=== PATIENT | male | born 1990 | race Caucasian/White ===

== ENCOUNTER 2024-10-24 20:54 | Emergency (ER) | payer SELFPAY ==
[2024-10-24 21:04] VITALS: BP 141/96; PULSE 78; RESP 20; TEMP 36.4; O2SAT 98; BMI 36.9
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
--- OUTSIDE RECORDS SUMMARY | 2024-10-24 21:05 | XMS_ITS | Encounter Summary ---
Author Organization [facility] Address [address] [place] [address] Care Team Providers Care Candy Maker Name Role Phone Dewey Gallardo Primary Care Provider Gladys pickens Encounter Details Date Type Department Care Team (Latest Contact Info) Description 06/02/2002 Outpatient Historical [facility] Medicine [place] [address] [facility] [address] [facility] [address] [place] [phone] Dylon Horowitz MD [address] [facility] [address] [place] [phone] ACUTE PHARYNGITIS (Primary Dx); ALLERGIC RHINITIS NOS; Dysfunct eustachian tube Social History Tobacco Use Types Packs/Day Years Used Date Smoking Tobacco: Never Assessed Sex and Gender Information Value Date Recorded Sex Assigned at Not on file Legal 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
--- OUTSIDE RECORDS SUMMARY | 2024-10-24 21:05 | XMS_ITS | Encounter Summary ---
Author Organization [facility] Address [address] [place] [address] Care Team Providers Care Hot Dog Vendor Name Role Phone Dewey Gallardo Primary Care Provider Gladys pickens Encounter Details Date Type Department Care Team (Latest Contact Info) Description 03/21/2001 Outpatient Historical [facility] Medicine [place] [address] [facility] [address] [place] [phone] Dylon Horowitz MD [address] [facility] [address] [facility] [address] [place] [phone] FX PHALANX, HAND NOS-CLOSE (Primary Dx); CONTUSION OF FINGER Social History Tobacco Use Types Packs/Day Years Used Date Smoking Tobacco: Never Assessed Sex and Gender Information Value Date Recorded Sex Assigned at Not on file Legal 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
--- OUTSIDE RECORDS SUMMARY | 2024-10-24 21:05 | XMS_ITS | Encounter Summary ---
Author Organization [facility] Address [address] [place] [address] Care Team Providers Care Ux Ui Designer Name Role Phone Dewey Gallardo Primary Care Provider Gladys pickens Encounter Details Date Type Department Care Team (Latest Contact Info) Description 01/03/1998 Outpatient Historical [facility] Medicine [place] [address] [facility] [address] [place] [phone] Michel Barbour, DO [address] [place] [address] Acute pharyngitis (Primary Dx) Social History Tobacco Use Types Packs/Day Years Used Date Smoking Tobacco: Never Assessed Sex and Gender Information Value Date Recorded Sex Assigned at Not on file Legal 

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
--- OUTSIDE RECORDS SUMMARY | 2024-10-24 21:05 | XMS_ITS | Encounter Summary ---
Author Organization [facility] Address [address] [place] [address] Care Team Providers Care Asic Verification Engineer Name Role Phone Dewey Gallardo Primary Care Provider Gladys pickens Encounter Details Date Type Department Care Team (Late st Contact Info) Description 02/02/2007 Outpatient Historical [facility] Medicine [place] [address] [facility] [address] [place] [phone] Ellis Mitchell MD NO ADDRESS ON FILE Social History Tobacco Use Types Packs/Day Years Used Date Smoking Tobacco: Never Assessed Sex and Gender Information Value Date Recorded Sex Assigned at Not on file Legal Sex Male 2:50 AM SPARE HAND CARDING Gender Identity Not on file Sexual Orientation Not on file documented as of this encounter Plan of Treatment Not on file documented as of this encounter Visit Diagnoses Not on filedocumented in this encounter Care Teams Asic Verification Engineer Relationship Specialty Start Date End Date Dewey Gallardo PA PCP - General Physician Owner Manager 10/08/14 documented as of this encounter
--- OUTSIDE RECORDS SUMMARY | 2024-10-24 21:05 | XMS_ITS | Encounter Summary ---
Author Organization [facility] Address [address] [place] [address] Care Team Providers Care Pulp Maker Name Role Phone Dewey Gallardo Primary Care Provider Gladys pickens Encounter Details Date Type Department Care Team (Late st Contact Info) Description 03/03/2007 Outpatient Historical [facility] Medicine [place] [address] [facility] [address] [place] [address] Hira Hernández NP NO ADDRESS ON FILE Social History Tobacco Use Types Packs/Day Years Used Date Smoking Tobacco: Never Assessed Sex and Gender Information Value Date Recorded Sex Assigned at Not on file Legal 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
--- OUTSIDE RECORDS SUMMARY | 2024-10-24 21:05 | XMS_ITS | Encounter Summary ---
Author Organization [facility] Address [address] [place] [address] Care Team Providers Care Glazier Supervisor Name Role Phone Dewey Gallardo Primary Care Provider Gladys pickens Encounter Details Date Type Department Care Team (Latest Contact Info) Description 03/20/2002 Outpatient Historical [facility] Family Medicine- [place] [address] [place] [address] Nimisha Perez MD NO ADDRESS ON FILE ACUTE URI NOS (Primary Dx); ACUTE PHARYNGITIS Social History Tobacco Use Types Packs/Day Years Used Date Smoking Tobacco: Never Assessed Sex and Gender Information Value Date Recorded Sex Assigned at Not on file 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
--- OUTSIDE RECORDS SUMMARY | 2024-10-24 21:05 | XMS_ITS | Encounter Summary ---
Author Organization [facility] Address [address] [place] [address] Care Team Providers Care Classification Officer Name Role Phone Dewey Gallardo Primary Care Provider Gladys pickens Encounter Details Date Type Department Care Team (Latest Contact Info) Description 09/28/2006 Outpatient Historical [facility] Family Medicine- [place] [address] [place] [address] Dewey Gallardo PA NO ADDRESS ON FILE Other General Medical Examination for Administrative Purposes (Primary Dx) Social History Tobacco Use Types Packs/Day Years Used Date Smoking Tobacco: Never Assessed Sex and Gender Information Value Date Recorded Sex Assigned at Not on file Legal Sex Male 2:50 AM NARCOTICS AGENT Gender Identity Not on file Sexual Orientation Not on file documented as of this encounter Plan of Treatment Not on file documented as of this encounter Visit Diagnoses Diagnosis Other general medical examination for administrative purposes- Primary documented in this encounter Care Teams Classification Officer Relationship Specialty Start Date End Date Dewey Gallardo PA PCP - General Physician Ballpoint Pen Assembly Machine Operator 10/08/14 documented as of this encounter
--- OUTSIDE RECORDS SUMMARY | 2024-10-24 21:05 | XMS_ITS | Encounter Summary ---
Author Organization [facility] Address [address] [place] [address] Care Team Providers Care Geophysical Prospecting Permit Agent Name Role Phone Dewey Gallardo Primary Care Provider Gladys pickens Encounter Details Date Type Department Care Team (Latest Contact Info) Description 04/05/2001 Outpatient Historical [facility] Medicine [place] [address] [facility] [address] [place] [phone] Tomasz Ruff DO NO ADDRESS ON FILE ACUTE BRONCHITIS (Primary Dx) Social History Tobacco Use Types Packs/Day Years Used Date Smoking Tobacco: Never Assessed Sex and Gender Information Value Date Recorded Sex Assigned at Not on file 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
--- OUTSIDE RECORDS SUMMARY | 2024-10-24 21:05 | XMS_ITS | Encounter Summary ---
Author Organization [facility] Address [address] [place] [address] Care Team Providers Care Transmission Specialist Name Role Phone Dewey Gallardo Primary Care Provider Gladys pickens Encounter Details Date Type Department Care Team (Latest Contact Info) Description 12/03/2004 Outpatient Historical [facility] Medicine [place] [address] [facility] [address] [place] [address] Dewey Gallardo PA NO ADDRESS ON FILE MED EXAM NEC-ADMIN PURP (Primary Dx) Social History Tobacco Use Types Packs/Day Years Used Date Smoking Tobacco: Never Assessed Sex and Gender Information Value Date Recorded Sex Assigned at Not on file Legal 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
--- OUTSIDE RECORDS SUMMARY | 2024-10-24 21:05 | XMS_ITS | Encounter Summary ---
Author Organization [facility] Address [address] [place] [address] Care Team Providers Care Syrup Mixer Assistant Name Role Phone Dewey Gallardo Primary Care Provider Gladys pickens Encounter Details Date Type Department Care Team (Latest Contact Info) Description 09/26/2002 Outpatient Historical [facility] Family Medicine- [place] [address] [place] [address] Tomasz Ruff DO NO ADDRESS ON FILE HEADACHE (Primary Dx); JOINT PAIN-ANKLE; OBESITY NOS Social History Tobacco Use Types Packs/Day Years Used Date Smoking Tobacco: Never Assessed Sex and Gender Information Value Date Recorded Sex Assigned at Not on file Legal Sex Male 2:50 AM CLAM SHUCKER Gender Identity Not on file Sexual Orientation Not on file documented as of this encounter Plan of Treatment Not on file documented as of this encounter Visit Diagnoses Diagnosis Headache(784.0)- Primary Headache Pain in joint, ankle and foot Obesity, unspecified documented in this encounter Care Teams Syrup Mixer Assistant Relationship Specialty Start Date End Date Dewey Gallardo PA PCP - General Physician Psychic Reader 10/08/14 documented as of this encounter
--- NOTE | 2024-10-24 21:49 | CTR_ITS ---
PROCEDURE INFORMATION: Exam: CT Abdomen And Pelvis With Contrast Exam date and time: 10/24/2024 11:23 PM Age: 34 years old Clinical indication: Abdominal tenderness; Additional info: Concern for strangulated hernia TECHNIQUE: Imaging protocol: Computed tomography of the abdomen and pelvis with contrast. Radiation optimization: All CT scans at this facility use at least one of these dose optimization techniques: automated exposure control; mA and/or kV adjustment per patient size (includes targeted exams where dose is matched to clinical indication); or iterative reconstruction. Contrast material: OMNI 350; Contrast volume: 100 ml; Contrast route: INTRAVENOUS (IV); COMPARISON: US abdomen limited [id number] 06/27/2024 9:45 AM RADIATION DOSE METRICS: Total DLP (mGy-cm): 1204.87 FINDINGS: Liver: Normal. No mass. Gallbladder and biliary ducts: Normal. No calcified stones. No ductal dilation. Pancreas: Normal. No ductal dilation. Spleen: Normal. No splenomegaly. Adrenal glands: Normal. No mass. Kidneys and ureters: Normal. No hydronephrosis. Stomach and bowel: Scattered colonic diverticula without definite significant acute inflammatory changes. Appendix: No evidence of appendicitis. Intraperitoneal space: Unremarkable. No free air. No significant fluid collection. Vasculature: Unremarkable. No abdominal aortic aneurysm. Lymph nodes: Unremarkable. No enlarged lymph nodes. Urinary bladder: Unremarkable as visualized. Reproductive: Unremarkable as visualized. Bones/joints: Unremarkable. No acute fracture. Soft tissues: Small fat containing periumbilical hernia with inflamed mesenteric fat, with ventral abdominal wall defect measuring up to 1.2 cm. No associated bowel obstruction. CT/CT abdomen pelvis w con* [id number] IMPRESSION: Small fat containing periumbilical hernia with inflamed mesenteric fat, with ventral abdominal wall defect measuring up to 1.2 cm. No associated bowel obstruction.
--- NOTE | 2024-10-24 22:13 | ED_ITS ---
HPI - Abdominal Pain 2 General: Chief Complaint: Abdominal Pain Stated Complaint: Two Hernia's Time Seen by Provider: 10/24/24 21:58 History of Present Illness: Patient is 34-year-old male with known umbilical hernia x 2, that was working today with his abdominal support brace on, took this off, and had severe pain. He is unable to sit down. He has burping, and sure he has had gas passing. Denies any dysuria. This happened suddenly after work at 1630. He thought there is pulsating. Admits to nausea without emesis. Associated Symptoms: Reports nausea; Denies chills, fever(s) and vomiting Related Data Previous Rx's ?Medication ?Instructions ?Recorded methocarbamol 500 mg tablet 500 mg PO Q8H PRN muscle s pasm #30 10/25/24 tabs Allergies Allergy/AdvReac Type Severity Reaction Status Date / Time No Known Allergies Allergy Verified 10/24/24 21:09 Review of Systems 2 General: Reports: 10 or more systems reviewed and unremarkable except in HPI and below Const: Denies: fever(s) or chills Eyes: Denies: change in vision or blurry vision ENMT: Denies: throat pain or mouth pain Card: Denies: chest pain or palpitations Resp: Denies: dyspnea or non-productive cough GI: Reports: abdominal pain and nausea; Denies: vomiting : Denies: flank pain or difficulty urinating Musc: Denies: neck pain, back pain or extremity pain Skin/Breast: Denies: rash or pruritus Neuro: Denies: headache(s) or numbness in extremities Psych: Denies: anxiety or depression Vasyl/Lymph: Denies: easy bruising or easy bleeding All/Imm: Denies: urticaria Physical Exam 2 Const: COMMON NORMALS: patient oriented x3 HENMT: COMMON NORMALS: normocephalic and atraumatic HEAD & SCALP: n ormocephalic and atraumatic Neck/C-Spine: COMMON NORMALS: full ROM, no lymphadenopathy and supple Chest: COMMONS NORMALS: normal inspection of the chest and normal palpation of entire chest wall Resp: COMMON NORMALS: normal respiratory effort, No retractions, No use of accessory muscles and clear to auscultation bilaterally AUSCULTATION: clear to auscultation bilaterally Cardio: COMMON NORMALS: regular rate and regular rhythm RATE: regular rate RHYTHM: regular rhythm GI: INSPECTION: Yes visible herniation, No visible pulsation and No visible peristalsis AUSCULTATION: Yes Hypoactive bowel sounds present PALPATION: Y es Firmness to palpation present (GI), Yes Tenderness to palpation present (GI) Details: RUQ and Yes Guarding due to palpation present (GI) in the RUQ : COMMON NORMALS: Yes no CVA tenderness BLADDER/KIDNEY EXAM: Yes no CVA tenderness Back/Pelvis: COMMON NORMALS: no CVA tenderness Extremity: COMMON NORMALS: normal to inspection, full ROM and capillary refill normal Neuro: COMMON NORMALS: patient oriented x3, CN's II-XII intact bilaterally and moves all extremities Psych: COMMON NORMALS: mental status grossly normal and Normal thought process present THOUGHT PROCESS: Normal thought process present Skin: COMMON NORMALS: no rashes or lesions noted, no wounds and turgor normal GENERAL SKIN EXAM: no rashes or lesions noted and turgor normal Course 2 Vital Signs: Vital signs: Vital Signs Temperature 97.6 F 10/24/24 21:04 Pulse Rate 53 L 10/25/24 00:30 Respiratory Rate 20 H 10/24/24 21:04 Blood Pressure 116/71 10/25/24 00:30 Pulse Oximetry 99 10/25/24 00:30 Oxygen Delivery Me thod Room Air 10/25/24 00:00 MDM - Abdominal Pain Medical Decision Making Patient is 34-year-old male with complaints of abdominal pain, severe, worsening since work at 1630 when he removed his brace. He feels like there is a pulsating area. I do not appreciate this on exam, however I do appreciate a fullness tenderness, and guarding in this right to mid upper quadrant. Discussed with patient. Will obtain routine labs, and CT of his abdomen pelvis with contrast. As well he will be giving medication for his pain.. Patient's CT had periumbilical hernia that is inflamed. More information obtained from the patient notes that he utilized a small Abdominal brace because he could not find his regular sized abdominal brace. I suspect this is secondary to the size of the brace. I have asked patient not to wear this 1. Will treat with additional analgesic, anti-inflammatory, muscle relaxers, and discharged home with education on icing, Tylenol, ibuprofen. Medical Records I reviewed the patient's medical records. Lab Data I reviewed the patient's lab results. 10/24/24 22:10 10/24/24 22:10 Labs/Radiology: Radiology Impressions Abdomen/Pelvis CT 10/24/24 21:49 IMPRESSION: Small fat containing periumbilical hernia with inflamed mesenteric fat, with ventral abdominal wall defect measuring up to 1.2 cm. No associated bowel obstruction. Laboratory Results WBC 10.19 10^3/uL (3.29-11.43) 10/24/24 22:10 RBC 5.05 10^6/uL (3.85-5.65) 10/24/24 22:10 Hgb 14.90 g/dL (11.27-16.99) 10/24/24 22:10 Hct 43.3 % (37-53) 10/24/24 22:10 MCV 85.7 fl (82-101) 10/24/24 22:10 MCH 29.5 pg (27-33) 10/24/24 22:10 MCHC 34.4 g/dL (30-55) 10/24/24 22:10 RDW 12.4 % (12.1-15.1) 10/24/24 22:10 Plt Count 231 10^3/cmm (157-399) 10/24/24 22:10 MPV 10.7 fL (7.4-10.4) H 10/24/24 22:10 Neut % (Auto) 65.4 % 10/24/24 22:10 Lymph % (Auto) 25.9 % 10/24/24 22:10 [place] % (Auto) 6.9 % 10/24/24 22:10 Eos % (Auto) 1.0 % 10/24/24 22:10 Baso % (Auto) 0.5 % 10/24/24 22:10 Neut # (Auto) 6.67 10^3/uL (1.8-7.7) 10/24/24 22:10 Lymph # (Auto) 2.6 10^3/uL (0.8-4.8) 10/24/24 22:10 [place] # (Auto) 0.7 10^3/uL (0.2-0.9) 10/24/24 22:10 Eos # (Auto) 0.1 10^3/uL (0.0-0.8) 10/24/24 22:10 Baso # (Auto) 0.1 10^3/uL (0.0-0.1) 10/24/24 22:10 Nucleated RBC % (auto) 0 % 10/24/24 22:10 Nucleated RBCs # 0.0 /100WBC 10/24/24 22:10 Sodium 137 mmol/L (136-145) 10/24/24 22:10 Potassium 3.8 mmol/L (3.5-5.1) 10/24/24 22:10 Chloride 99 mmol/L (98-107) 10/24/24 22:10 Carbon Dioxide 28 mmol/L (22-29) 10/24/24 22:10 Anion Gap 13.8 (5-19) 10/24/24 22:10 BUN 12 mg/dL (6-20) 10/24/24 22:10 Creatinine 0.9 mg/dL (0.7-1.2) 10/24/24 22:10 GFR Calculation 97.8 mL/min (90-130) 10/24/24 22:10 Glucose 95 mg/dL (65-115) 10/24/24 22:10 Calculated Osmolality 284 mOsm/kg (285-295) L 10/24/24 22:10 Lactic Acid 1.3 mmol/L (0.5-2.2) 10/24/24 22:10 Calcium 9.5 mg/dL (8.5-10.5) 10/24/24 22:10 Total Bilirubin 0.6 mg/dL (0.15-1.2) 10/24/24 22:10 AST 28 U/L (0-40) 10/24/24 22:10 ALT 46 U/L (0-41) H 10/24/24 22:10 Alkaline Phosphatase 82 U/L (40-130) 10/24/24 22:10 Total Protein 7.8 g/dL (6.6-8.7) 10/24/24 22:10 Albumin 4.8 g/dL (3.5-5.2) 10/24/24 22:10 Globulin 3.0 g/dL (1.3-4.6) 10/24/24 22:10 Lipase 12 U/L (13-60) L 10/24/24 22:10 All radiology interpretation(s) finalized by discharge Discharge Plan Discharge Patient Disposition: Home Clinical Impression: Periumbilical hernia Condition: Stable Prescriptions: New methocarbamol 500 mg tablet 500 mg PO Q8H PRN (Reason: muscle spasm) Qty: 30 0RF Discharge Orders: Discharge ED (Routine); Ordered 10/25/24 Ordered By: Vianca Hammer Referrals: Abimael Harp MD [Primary Care Provider, Family Practice] Patient Instructions: Ventral Hernia (ED), Patient Portal & [place] Instructions Activity Restrictions/Additional Instructions: Do not wear your and narrow brace again since it caused the inflammation of your abdominal hernia Muscle relaxer was sent to the pharmacy. Use with caution as you can have some sedate of effects. Do not start until tomorrow, as you did have a muscle relaxer tonight You can ice your periumbilical hernia to help with comfort. You may utilize Tylenol and ibuprofen tomorrow. You may take the day off as per we discussed with your work family Consider reevaluating repairing your hernia with your physician Return to ED with worsening pain, not passing gas, bloating, fever greater 100.4 ?F Print Language: French Coding Level of Care Code ED Production Underwriter for Boby Phan
[2024-10-24 22:26] LABS: Hematocrit 43.3 % (37-53); Hemoglobin 14.90 g/dL (11.27-16.99); Mean Corpuscular HGB Conc 34.4 g/dL (30-55); Mean Corpuscular Hemoglobin 29.5 pg (27-33); Mean Corpuscular Volume 85.7 fl (82-101); Nucleated Red Blood Cells % 0 %; Platelet Count 231 10^3/cmm (157-399); Red Blood Count 5.05 10^6/uL (3.85-5.65); White Blood Count 10.19 10^3/uL (3.29-11.43)
[2024-10-24 22:46] LABS: Lactic Sepsis W/Reflex 1.3 mmol/L (0.5-2.2)
[2024-10-24 22:49] LABS: Alanine Aminotransferase 46 U/L (0-41); Albumin Level 4.8 g/dL (3.5-5.2); Alkaline Phosphatase 82 U/L (40-130); Anion Gap 13.8 (5-19); Aspartate Amino Transferase 28 U/L (0-40); Blood Urea Nitrogen 12 mg/dL (6-20); Calcium 9.5 mg/dL (8.5-10.5); Carbon Dioxide 28 mmol/L (22-29); Chloride 99 mmol/L (98-107); Creatinine Clr Calc Pharmacy 155.4347; Globulin 3.0 g/dL (1.3-4.6); Glucose 95 mg/dL (65-115); Lipase 12 U/L (13-60); Osmolality Calculated 284 mOsm/kg (285-295); Potassium 3.8 mmol/L (3.5-5.1); Sodium 137 mmol/L (136-145); Total Protein 7.8 g/dL (6.6-8.7)
[2024-10-24] MEDS: ondansetron 2 mg/ML SDV 2 mL 4 MG IVP (23:01)
[2024-10-24] MEDS: morphine 4 mg/mL SDV 1 mL IVP (23:01)
[2024-10-24] MEDS: iohexol 350 mg/mL 500 mL Btl (per mL) IV (23:27)
[2024-10-25] VITALS: BP 110/67; PULSE 99; O2SAT 100
[2024-10-25 00:30] VITALS: BP 116/71; PULSE 53; O2SAT 99
[2024-10-25] MEDS: orphenadrine 30 mg/mL Inj 2 mL 60 MG IM (01:03)
[2024-10-25] MEDS: HYDROmorphone 0.5 MG/0.5 ML INJ IVP (01:03)
[2024-10-25 01:37] VITALS: BP 116/78; PULSE 51; O2SAT 99
== END 2024-10-25 01:39 | disposition home or self-care (01) ==
PROVIDERS: Emergency Provider Physician Assistant; PCP Family Medicine
DX: K42.9 Umbilical hernia without obstruction or gangrene (principal)
CPT/HCPCS: 36415; 74177; 80053; 83605; 83690; 85025; 96361; 96372; 96374; 96375; 99285; J1171; J1885; J2270; J2360; J2405; J7030

== ENCOUNTER 2024-12-02 15:16 | Emergency (ER) | payer OTHER, SELFPAY ==
[2024-12-02 15:24] VITALS: BP 136/77; PULSE 65; RESP 18; O2SAT 98
--- OUTSIDE RECORDS SUMMARY | 2024-12-02 15:24 | XMS_ITS | Encounter Summary ---
Author Organization [facility] Address [address] [place] [address] Care Team Providers Care Rn Correctional Name Role Phone Dewey Gallardo Primary Care Provider Gladys pickens Encounter Details Date Type Department Care Team (Late st Contact Info) Description 02/02/[address] 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
--- OUTSIDE RECORDS SUMMARY | 2024-12-02 15:24 | XMS_ITS | Encounter Summary ---
Author Organization [facility] Address [address] [place] [address] Care Team Providers Care Acid Loader Name Role Phone Dewey Gallardo Primary Care Provider Gladys pickens Encounter Details Date Type Department Care Team (Late st Contact Info) Description 03/03/2007 Outpatient Historical [facility] Medicine [place] [address] [facility] [address] [place] [phone] Hira Hernández NP NO ADDRESS ON FILE Social History Tobacco Use Types Packs/Day Years Used Date Smoking Tobacco: Never Assessed Sex and Gender Information Value Date Recorded Sex Assigned at Not on file 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
--- OUTSIDE RECORDS SUMMARY | 2024-12-02 15:24 | XMS_ITS | Encounter Summary ---
Author Organization [facility] Address [address] [place] [address] Care Team Providers Care Exhibitor Sales Name Role Phone Dewey Gallardo Primary Care Provider Gladys pickens Encounter Details Date Type Department Care Team (Latest Contact Info) Description 12/03/2004 Outpatient Historical [facility] Medicine [place] [address] 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
--- OUTSIDE RECORDS SUMMARY | 2024-12-02 15:24 | XMS_ITS | Encounter Summary ---
Author Organization [facility] Address [address] [place] [address] Care Team Providers Care Junior Data Analyst Name Role Phone Dewey Gallardo Primary Care Provider Gladys pickens Encounter Details Date Type Department Care Team (Latest Contact Info) Description 06/02/2002 Outpatient Historical [facility] Medicine [place] [address] [facility] [address] [place] [phone] Dylon Horowitz MD [address] [facility] [address] [place] [phone] ACUTE PHARYNGITIS (Primary Dx); ALLERGIC RHINITIS NOS; Dysfunct eustachian tube Social History Tobacco Use Types Packs/Day Years Used Date Smoking Tobacco: Never Assessed Sex and Gender Information Value Date Recorded Sex Assigned at Not on file 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
--- OUTSIDE RECORDS SUMMARY | 2024-12-02 15:24 | XMS_ITS | Encounter Summary ---
Author Organization [facility] Address [address] [place] [address] Care Team Providers Care Library Cataloging Technician Name Role Phone Dewey Gallardo Primary Care Provider Gladys pickens Encounter Details Date Type Department Care Team (Latest Contact Info) Description 09/26/2002 Outpatient Historical [facility]- [place] [address] [place] [address] Tomasz Ruff DO NO ADDRESS ON FILE HEADACHE (Primary Dx); JOINT PAIN-ANKLE; OBESITY NOS Social History Tobacco Use Types Packs/Day Years Used Date Smoking Tobacco: Never Assessed Sex and Gender Information Value Date Recorded Sex Assigned at Not on file 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
--- OUTSIDE RECORDS SUMMARY | 2024-12-02 15:24 | XMS_ITS | Encounter Summary ---
Author Organization [facility] Address [address] [place] [address] Care Team Providers Care Novelty Twister Operator Name Role Phone Dewey Gallardo Primary Care Provider Gladys pickens Encounter Details Date Type Department Care Team (Latest Contact Info) Description 03/21/2001 Outpatient Historical [facility] Medicine [place] [address] [facility] [address] [place] [phone] Dylon Horowitz MD [address] [facility] [address] [place] [phone] FX PHALANX, HAND NOS-CLOSE (Primary Dx); CONTUSION OF FINGER Social History Tobacco Use Types Packs/Day Years Used Date Smoking Tobacco: Never Assessed Sex and Gender Information Value Date Recorded Sex Assigned at Not on file Legal 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
--- OUTSIDE RECORDS SUMMARY | 2024-12-02 15:24 | XMS_ITS | Clinical Summary ---
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
--- OUTSIDE RECORDS SUMMARY | 2024-12-02 15:24 | XMS_ITS | Encounter Summary ---
Author Organization [facility] Address [address] [place] [address] Care Team Providers Care Staff Counsel Name Role Phone Dewey Gallardo Primary Care Provider Gladys pickens Encounter Details Date Type Department Care Team (Latest Contact Info) Description 01/03/1998 Outpatient Historical [facility] Medicine [place] [address] [facility] [address] [place] [phone] Michel Barbour, DO [address] [place] [address] Acute pharyngitis (Primary Dx) Social History Tobacco Use Types Packs/Day Years Used Date Smoking Tobacco: Never Assessed Sex and Gender Information Value Date Recorded Sex Assigned at Not on file 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
--- OUTSIDE RECORDS SUMMARY | 2024-12-02 15:24 | XMS_ITS | Encounter Summary ---
Author Organization [facility] Address [address] [place] [address] Care Team Providers Care Duplicating Machine Operator Name Role Phone Dewey Gallardo Primary Care Provider Gladys pickens Encounter Details Date Type Department Care Team (Latest Contact Info) Description 09/28/2006 Outpatient Historical [facility]- [place] [address] [place] [address] Dewey Gallardo PA NO ADDRESS ON FILE Other General Medical Examination for Administrative Purposes (Primary Dx) Social History Tobacco Use Types Packs/Day Years Used Date Smoking Tobacco: Never Assessed Sex and Gender Information Value Date Recorded Sex Assigned at Not on file Legal 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
--- OUTSIDE RECORDS SUMMARY | 2024-12-02 15:24 | XMS_ITS | Clinical Summary ---
Author Organization [facility] Address 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
--- OUTSIDE RECORDS SUMMARY | 2024-12-02 15:24 | XMS_ITS | Encounter Summary ---
Author Organization [facility] Address [address] [place] [address] Care Team Providers Care Cleaning And Maintenance Worker Name Role Phone Dewey Gallardo Primary Care Provider Gladys pickens Encounter Details Date Type Department Care Team (Latest Contact Info) Description 03/20/2002 Outpatient Historical [facility]- [place] [address] [place] [address] Nimisha Perez MD NO ADDRESS ON FILE ACUTE URI NOS (Primary Dx); ACUTE PHARYNGITIS Social History Tobacco Use Types Packs/Day Years Used Date Smoking Tobacco: Never Assessed Sex and Gender Information Value Date Recorded Sex Assigned at Not on file Legal Sex Male 2:50 AM SET OFF BLOCKER Gender Identity Not on file Sexual Orientation Not on file documented as of this encounter Plan of Treatment Not on file documented as of this encounter Visit Diagnoses Diagnosis Acute upper respiratory infections of unspecified site- Primary Acute pharyngitis documented in this encounter Care Teams Cleaning And Maintenance Worker Relationship Specialty Start Date End Date Dewey Gallardo PA PCP - General Physician Manager Of Purchasing 10/08/14 documented as of this encounter
--- OUTSIDE RECORDS SUMMARY | 2024-12-02 15:24 | XMS_ITS | Encounter Summary ---
Author Organization [facility] Address [address] [place] [address] Care Team Providers Care Manufacturing Leader Name Role Phone Dewey Gallardo Primary Care Provider Gladys pickens Encounter Details Date Type Department Care Team (Latest Contact Info) Description 04/05/2001 Outpatient Historical [facility] Medicine [place] [address] [facility] [address] [place] [address] Tomasz Ruff DO NO ADDRESS ON FILE ACUTE BRONCHITIS (Primary Dx) Social History Tobacco Use Types Packs/Day Years Used Date Smoking Tobacco: Never Assessed Sex and Gender Information Value Date Recorded Sex Assigned at Not on file 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
[2024-12-02 16:02] LABS: Hematocrit 43.2 % (37-53); Hemoglobin 14.90 g/dL (11.27-16.99); Mean Corpuscular HGB Conc 34.5 g/dL (30-55); Mean Corpuscular Hemoglobin 29.3 pg (27-33); Mean Corpuscular Volume 84.9 fl (82-101); Nucleated Red Blood Cells % 0 %; Platelet Count 224 10^3/cmm (157-399); Red Blood Count 5.09 10^6/uL (3.85-5.65); White Blood Count 10.20 10^3/uL (3.29-11.43)
[2024-12-02 16:20] LABS: Alanine Aminotransferase 43 U/L (0-41); Albumin Level 4.7 g/dL (3.5-5.2); Alkaline Phosphatase 81 U/L (40-130); Anion Gap 15.5 (5-19); Aspartate Amino Transferase 27 U/L (0-40); Blood Urea Nitrogen 14 mg/dL (6-20); Calcium 9.5 mg/dL (8.5-10.5); Carbon Dioxide 27 mmol/L (22-29); Chloride 100 mmol/L (98-107); Creatinine Clr Calc Pharmacy 156.9467; Globulin 2.9 g/dL (1.3-4.6); Glucose 99 mg/dL (65-115); Lipase 12 U/L (13-60); Osmolality Calculated 287 mOsm/kg (285-295); Potassium 4.5 mmol/L (3.5-5.1); Sodium 138 mmol/L (136-145); Total Protein 7.6 g/dL (6.6-8.7)
--- NOTE | 2024-12-02 16:35 | CTR_ITS ---
PROCEDURE INFORMATION: Exam: CT Abdomen And Pelvis With Contrast Exam date and time: 12/02/2024 4:52 PM Age: 34 years old Clinical indication: Abdominal pain; Additional info: Abdominal pain with concern of hernia strangulation TECHNIQUE: Imaging protocol: Computed tomography of the abdomen and pelvis with contrast. Radiation optimization: All CT scans at this facility use at least one of these dose optimization techniques: automated exposure control; mA and/or kV adjustment per patient size (includes targeted exams where dose is matched to clinical indication); or iterative reconstruction. Contrast material: OMNI 350; Contrast volume: 100 ml; Contrast route: INTRAVENOUS (IV); COMPARISON: CT abdomen pelvis w con* [id number] 10/24/2024 11:23 PM RADIATION DOSE METRICS: Total DLP (mGy-cm): 1202.78 FINDINGS: Liver: No discrete liver lesions are apparent. Smooth hepatic contour. Gallbladder and biliary ducts: No gallbladder distension or inflammation. No calcified gallstones are apparent. No common bile duct abnormality is evident. Pancreas: No evidence of pancreatitis. No ductal dilation. Spleen: Spleen is enlarged, measuring 15.6 cm on coronal imaging. Adrenal glands: Adrenal glands are within expected limits. Kidneys and ureters: No renal or ureteral calculi are identified. No hydronephrosis. Stomach and bowel: Small bowel is normal caliber. No obstruction. Transverse colon is nondistended, slightly accentuating wall thickness. Appendix: No evidence of appendicitis. Intraperitoneal space: No free air. No significant fluid collection. Vasculature: No abdominal aortic aneurysm. Lymph nodes: No pathologically enlarged lymph nodes by CT size criteria. Urinary bladder: Unremarkable as visualized. Reproductive: Unremarkable as visualized. Bones/joints: No acute osseous abnormalities. Soft tissues: There are a pair of tiny supraumbilical ventral abdominal wall hernias which contain inflamed fat, but no bowel. There is also a small fat containing umbilical hernia that does not appear inflamed. CT/CT abdomen pelvis w con* [id number] IMPRESSION: 1. Pair of tiny supraumbilical hernias containing inflamed fat, but no bowel. 2. Mild splenomegaly, nonspecific.
--- NOTE | 2024-12-02 16:39 | ED_ITS ---
HPI - Abdominal Pain 2 General: Chief Complaint: Abdominal Pain Stated Complaint: abd pain Time Seen by Provider: 12/02/24 16:04 History of Present Illness: Patient is 34-year-old male with known ventral hernia, presents to ED with sudden severe pain right lower quadrant. Patient is concerned he has hernia strangulation. This occurred 2 hours prior to arrival. He does have mild improvement because he took his methocarbamol from his last ER visit on 10/25. He still has mild pain in this right lower quadrant area. No fevers. He was not lifting anything heavy. Associated Symptoms: Reports nausea; Denies chills, fever(s) and vomiting Related Data Previous Rx's ?Medication ?Instructions ?Recorded methocarbamol 500 mg tablet 500 mg PO Q8H PRN muscle s pasm #30 10/25/24 tabs methocarbamol 750 mg tablet 750 mg PO Q8H PRN muscle s pasm #30 12/02/24 tabs Allergies Allergy/AdvReac Type Severity Reaction Status Date / Time No Known Allergies Allergy Verified 10/24/24 21:09 Review of Systems 2 General: Reports: 10 or more systems reviewed and unremarkable except in HPI and below Const: Denies: fever(s) or chills Eyes: Denies: change in vision or blurry vision ENMT: Denies: throat pain or mouth pain Card: Denies: chest pain or palpitations Resp: Denies: dyspnea or non-productive cough GI: Reports: abdominal pain and nausea; Denies: vomiting : Denies: flank pain or difficulty urinating Musc: Denies: neck pain, back pain or extremity pain Skin/Breast: Denies: rash or pruritus Neuro: Denies: headache(s) or numbness in extremities Psych: Denies: anxiety or depression Vasyl/Lymph: Denies: easy bruising or easy bleeding All/Imm: Denies: urticaria Physical Exam 2 Const: COMMON NORMALS: patient oriented x3 HENMT: COMMON NORMALS: normocephalic and atraumatic HEAD & SCALP: n ormocephalic and atraumatic Neck/C-Spine: COMMON NORMALS: full ROM, no lymphadenopathy and supple Chest: COMMONS NORMALS: normal inspection of the chest and normal palpation of entire chest wall Resp: COMMON NORMALS: normal respiratory effort, No retractions, No use of accessory muscles and clear to auscultation bilaterally AUSCULTATION: clear to auscultation bilaterally Cardio: COMMON NORMALS: regular rate and regular rhythm RATE: regular rate RHYTHM: regular rhythm GI: INSPECTION: Yes visible herniation, No visible pulsation and No visible peristalsis AUSCULTATION: Yes Hypoactive bowel sounds present PALPATION: Y es Firmness to palpation present (GI), Yes Tenderness to palpation present (GI) Details: RLQ and Yes Guarding due to palpation present (GI) in the RLQ : COMMON NORMALS: Yes no CVA tenderness BLADDER/KIDNEY EXAM: Yes no CVA tenderness Back/Pelvis: COMMON NORMALS: no CVA tenderness Extremity: COMMON NORMALS: normal to inspection, full ROM and capillary refill normal Neuro: COMMON NORMALS: patient oriented x3, CN's II-XII intact bilaterally and moves all extremities Psych: COMMON NORMALS: mental status grossly normal and Normal thought process present THOUGHT PROCESS: Normal thought process present Skin: COMMON NORMALS: no rashes or lesions noted, no wounds and turgor normal GENERAL SKIN EXAM: no rashes or lesions noted and turgor normal Course 2 Vital Signs: Vital signs: Vital Signs Pulse Rate 65 12/02/24 15:24 Respiratory Rate 18 12/02/24 15:24 Blood Pressure 136/77 12/02/24 15:24 Pulse Oximetry 98 12/02/24 15:24 Oxygen Delivery Me thod Room Air 12/02/24 15:24 MDM - Abdominal Pain Medical Decision Making Patient is a 34-year-old gentleman returns to the ED with complaints of right lower quadrant abdominal pain with known hernias. He had been evaluated by surgery, and had decided to hold off on this. This was sudden in nature today. It was not affected by his bowel movements. On CT there was no strangulation of bowel. Will send methocarbamol to the pharmacy and patient will follow-up with surgery. Medical Records I reviewed the patient's medical records. Lab Data I reviewed the patient's lab results. 12/02/24 15:55 12/02/24 15:55 Labs/Radiology: Radiology Impressions Abdomen/Pelvis CT 12/02/24 16:35 IMPRESSION: 1. Pair of tiny supraumbilical hernias containing inflamed fat, but no bowel. 2. Mild splenomegaly, nonspecific. Laboratory Results WBC 10.20 10^3/uL (3.29-11.43) 12/02/24 15:55 RBC 5.09 10^6/uL (3.85-5.65) 12/02/24 15:55 Hgb 14.90 g/dL (11.27-16.99) 12/02/24 15:55 Hct 43.2 % (37-53) 12/02/24 15:55 MCV 84.9 fl (82-101) 12/02/24 15:55 MCH 29.3 pg (27-33) 12/02/24 15:55 MCHC 34.5 g/dL (30-55) 12/02/24 15:55 RDW 12.1 % (12.1-15.1) 12/02/24 15:55 Plt Count 224 10^3/cmm (157-399) 12/02/24 15:55 MPV 10.6 fL (7.4-10.4) H 12/02/24 15:55 Neut % (Auto) 61.4 % 12/02/24 15:55 Lymph % (Auto) 30.3 % 12/02/24 15:55 [place] % (Auto) 6.3 % 12/02/24 15:55 Eos % (Auto) 1.2 % 12/02/24 15:55 Baso % (Auto) 0.5 % 12/02/24 15:55 Neut # (Auto) 6.27 10^3/uL (1.8-7.7) 12/02/24 15:55 Lymph # (Auto) 3.1 10^3/uL (0.8-4.8) 12/02/24 15:55 [place] # (Auto) 0.6 10^3/uL (0.2-0.9) 12/02/24 15:55 Eos # (Auto) 0.1 10^3/uL (0.0-0.8) 12/02/24 15:55 Baso # (Auto) 0.1 10^3/uL (0.0-0.1) 12/02/24 15:55 Nucleated RBC % (auto) 0 % 12/02/24 15:55 Nucleated RBCs # 0.0 /100WBC 12/02/24 15:55 Sodium 138 mmol/L (136-145) 12/02/24 15:55 Potassium 4.5 mmol/L (3.5-5.1) 12/02/24 15:55 Chloride 100 mmol/L (98-107) 12/02/24 15:55 Carbon Dioxide 27 mmol/L (22-29) 12/02/24 15:55 Anion Gap 15.5 (5-19) 12/02/24 15:55 BUN 14 mg/dL (6-20) 12/02/24 15:55 Creatinine 0.9 mg/dL (0.7-1.2) 12/02/24 15:55 GFR Calculation 97.8 mL/min (90-130) 12/02/24 15:55 Glucose 99 mg/dL (65-115) 12/02/24 15:55 Calculated Osmolality 287 mOsm/kg (285-295) 12/02/24 15:55 Calcium 9.5 mg/dL (8.5-10.5) 12/02/24 15:55 Total Bilirubin 0.6 mg/dL (0.15-1.2) 12/02/24 15:55 AST 27 U/L (0-40) 12/02/24 15:55 ALT 43 U/L (0-41) H 12/02/24 15:55 Alkaline Phosphatase 81 U/L (40-130) 12/02/24 15:55 Total Protein 7.6 g/dL (6.6-8.7) 12/02/24 15:55 Albumin 4.7 g/dL (3.5-5.2) 12/02/24 15:55 Globulin 2.9 g/dL (1.3-4.6) 12/02/24 15:55 Lipase 12 U/L (13-60) L 12/02/24 15:55 All radiology interpretation(s) finalized by discharge Discharge Plan Discharge Patient Disposition: Home Clinical Impression: Supraumbilical hernia without gangrene and without obstruction Condition: Stable Prescriptions: New methocarbamol 750 mg tablet 750 mg PO Q8H PRN (Reason: muscle spasm) Qty: 30 0RF No Action methocarbamol 500 mg tablet 500 mg PO Q8H PRN (Reason: muscle spasm) Qty: 30 0RF Discharge Orders: Discharge ED (Routine); Ordered 12/02/24 Ordered By: Vianca Hammer Referrals: Abimael Harp MD [Primary Care Provider, Family Practice] Discharge Diet: Usual diet Discharge Activity: Limit activity as instructed Patient Instructions: Patient Portal & [place] Instructions Activity Restrictions/Additional Instructions: - Methocarbamol was sent to your pharmacy at [facility]. 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
[2024-12-02] MEDS: iohexol 350 mg/mL 500 mL Btl (per mL) IV (16:56)
== END 2024-12-02 17:55 | disposition home or self-care (01) ==
PROVIDERS: Emergency Medicine; Emergency Provider Physician Assistant; PCP Family Medicine
DX: K43.9 Ventral hernia without obstruction or gangrene (principal)
CPT/HCPCS: 74177; 80053; 83690; 85025; 99285